=== PATIENT | female | born 1980 | race Caucasian/White ===

== ENCOUNTER → 2021-05-12 | Outpatient (CLI) | payer BC ==
--- NOTE | 2021-05-12 15:28 | Diagnostic Imaging Report ---
INDICATION: Low back pain. TIME OF EXAM: 2:27 PM. EXAMINATION: Three views of the lumbar spine were obtained. FINDINGS: Curvature and alignment of the lumbar spine are normal. Vertebral body heights are well maintained. No acute compression fracture is detected. There is disc space narrowing at the L4-L5 and L5-S1 levels compatible with degenerative disc disease. IMPRESSION: Lower lumbar spondylosis. No acute fracture is detected. Dictated by: Dictated on workstation # [id number]
== END ==
LOC: RAD 14:05
PROVIDERS: ATTEND Family Medicine
DX: M47.816 Spondylosis without myelopathy or radiculopathy, lumbar region (principal)
CPT/HCPCS: 72100